=== PATIENT | male | born 2000 | race Caucasian/White ===

== ENCOUNTER 2019-01-22 08:41 | Day surgery (SDC) | payer OTHER ==
[~2019-01-22] VITALS: Ht 175.3 cm; Wt 55.3 kg
[2019-01-22 10:02] VITALS: Ht 175.3 cm; Wt 55.3 kg
[2019-01-22 10:27] VITALS: BP 132/82; PULSE 67; RESP 24
[2019-01-22] MEDS ORDERED: LIDOCAINE 4% SOLUTION 50 ML BTL ONE (10:32)
[2019-01-22] MEDS ORDERED: MIDAZOLAM 1 MG/ML 2 ML INJ ONE ×3 (11:14→11:15)
[2019-01-22] MEDS ORDERED: FENTAnyl 50 MCG/ML VIAL ONE (11:15)
[2019-01-22 11:41] VITALS: BP 112/82; RESP 20
== END 2019-01-22 14:12 | disposition home or self-care (01) ==
LOC: GIL 08:41
PROVIDERS: ATTEND Internal Medicine Gastroenterology
DX: K29.50 Unspecified chronic gastritis without bleeding (principal)
CPT/HCPCS: 43239; 88305; 88312; J2250; J3010; Z7610